=== PATIENT | male | born 1955 | race Caucasian/White ===

== ENCOUNTER → 2016-06-11 | Outpatient (REF) | payer MEDICARE, MEDICAID ==
[2016-06-11 12:09] LABS: ALBUMIN 3.8 GM/DL (3.2-5.2); ALBUMIN/GLOBULIN RATIO 1.06 (1.00-1.93); BILIRUBIN,TOTAL 2.9 MG/DL (0.2-1.0); CREATININE FOR GFR 1.49 MG/DL (0.70-1.30); GLOMERULAR FILTRATION RATE 51.2 (>49); POTASSIUM SERUM 4.8 MEQ/L (3.5-5.1); TOTAL PROTEIN 7.4 GM/DL (6.4-8.2); URIC ACID 5.7 MG/DL (3.5-7.2)
[2016-06-14 00:06] LABS: %CD3+CD4+CD8+ 1.1 % (Not Estab.); %CD3+CD4-CD8- 1.6 % (Not Estab.); ABS CD3+CD4+CD8+ 14 /uL (Not Estab.); ABS CD3+CD4+CD8- 221 /uL (Not Estab.); ABS CD3+CD4-CD8+ 741 /uL (Not Estab.); ABS CD3+CD4-CD8- 21 /uL (Not Estab.); Eosinophils 2 % (.); HGB 15.4 g/dL (12.6-17.7); Monocytes 11 % (.); Neutrophils 62 % (.); WBC 5.3 x10E3/uL (3.4-10.8)
== END ==
LOC: M SFHCPLAZ 08:23
PROVIDERS: ATTEND Internal Medicine Infectious Disease
DX: B20 Human immunodeficiency virus [HIV] disease (principal); R73.09 Other abnormal glucose; M10.079 Idiopathic gout, unspecified ankle and foot; Z79.899 Other long term (current) drug therapy

== ENCOUNTER → 2017-02-17 | Outpatient (REF) | payer MEDICARE, MEDICAID ==
[~2017-02-17] MED LIST: PRAV40TA2 PO; TENO30TAB PO; TIVI1TAB PO; TRIA1CR TOP; ULOR80TA PO; [UNRECOGNIZED DRUG - CODE] PO; [UNRECOGNIZED DRUG - CODE] PO
[2017-02-17 10:16] LABS: ALBUMIN 3.6 GM/DL (3.2-5.2); ALKALINE PHOSPHATASE 84 U/L (45-117); ALT/SGPT 84 U/L (12-78); ANION GAP 5 MEQ/L (8-16); AST/SGOT 43 U/L (15-37); BILIRUBIN,TOTAL 1.9 MG/DL (0.2-1.0); BLOOD UREA NITROGEN 18 MG/DL (7-18); CALCIUM LEVEL 8.5 MG/DL (8.8-10.2); CARBON DIOXIDE LEVEL 30 MEQ/L (21-32); CHLORIDE LEVEL 107 MEQ/L (98-107); CHOLESTEROL LEVEL 171 MG/DL (<200); CREATININE FOR GFR 1.47 MG/DL (0.70-1.30); GLOMERULAR FILTRATION RATE 51.8 (>49); GLUCOSE, FASTING 116 MG/DL (80-110); POTASSIUM SERUM 4.5 MEQ/L (3.5-5.1); SODIUM LEVEL 142 MEQ/L (136-145); TOTAL PROTEIN 7.2 GM/DL (6.4-8.2); TRIGLYCERIDES LEVEL 182 MG/DL (<150); URIC ACID 11.4 MG/DL (3.5-7.2)
[2017-02-21 07:59] LABS: Eosinophils 2 % (.); HCT 46.1 % (37.5-51.0); HGB 15.9 g/dL (12.6-17.7); Monocytes 7 % (.); Neutrophils 65 % (.); WBC 5.1 x10E3/uL (3.4-10.8)
== END ==
LOC: M LABDRAW1 08:38
PROVIDERS: ATTEND Internal Medicine Infectious Disease
DX: B20 Human immunodeficiency virus [HIV] disease (principal); A60.9 Anogenital herpesviral infection, unspecified; Z13.220 Encounter for screening for lipoid disorders; Z11.3 Encounter for screening for infections with a predominantly sexual mode of transmission; Z12.5 Encounter for screening for malignant neoplasm of prostate; M10.079 Idiopathic gout, unspecified ankle and foot; K62.82 Dysplasia of anus; J30.9 Allergic rhinitis, unspecified; Z23 Encounter for immunization; Z79.899 Other long term (current) drug therapy; Z87.891 Personal history of nicotine dependence
CPT/HCPCS: 36415; 80053; 80061; 81001; 84550; 86360; 86780; 87491; 87536; 87591; 90686; G0008; G0103; G0463

== ENCOUNTER 2017-03-04 08:53 | Outpatient (CLI) | payer MEDICARE, MEDICAID ==
[~2017-03-04] VITALS: Ht 180.3 cm; Wt 78.9 kg
[2017-03-04] MEDS ORDERED: NS 1,000 ML IV ONE (09:15)
--- NOTE | 2017-03-04 11:08 | ROOR ---
Patient Name: Karrie Paredes Procedure Date: 03/04/2017 10:46 AM Date of : 1955 Age: 61 Room: [facility] Gender: Male Note Status: Finalized Procedure: Colonoscopy Indications: Change in stool caliber, abnormal anal pap. Providers: Mac CORTEZ MD Referring MD: Randolph AUSTIN MD. Requesting Provider: Medicines: Monitored Anesthesia Care Complications: No immediate complications. Procedure: Pre-Anesthesia Assessment: - The heart rate, respiratory rate, oxygen saturations, blood pressure, adequacy of pulmonary ventilation, and response to care were monitored throughout the procedure. The Colonoscope was introduced through the anus and advanced to the cecum, identified by appendiceal orifice and ileocecal valve. The colonoscopy was performed without difficulty. The patient tolerated the procedure well. The quality of the bowel preparation was good. Findings: The perianal and digital rectal examinations were normal. Pertinent negatives include normal sphincter tone, no palpable rectal lesions and no anal lesion or abnormality was detected. Internal hemorrhoids were found during retroflexion. The hemorrhoids were moderate. There is no endoscopic evidence of mucosal abnormalities or condylomatous changes in the anus and in the rectum. The entire colon appeared normal on direct and retroflexion views. Impression: - Internal hemorrhoids. - The entire examined colon is normal on direct and retroflexion views. - The perianal and digital rectal examinations were normal. Pertinent negatives include normal sphincter tone, no palpable rectal lesions and no anal lesion or abnormality was detected. - There is no endoscopic evidence of mucosal abnormalities or condylomatous changes in the anus and in the rectum. - No specimens collected. Recommendation: - Repeat colonoscopy in 3 years for surveillance. Mac Cortez MD Mac CORTEZ MD 03/04/2017 11:07:50 AM This report has been signed electronically. Number of Addenda: 0 Note Initiated On: 03/04/2017 10:46 AM Estimated Blood Loss: Estimated blood loss: none.
[2017-03-04 11:27] VITALS: BP 103/72
== END 2017-03-04 11:31 | disposition home or self-care (01) ==
LOC: M OPP 08:53
PROVIDERS: ATTEND Internal Medicine Gastroenterology
DX: R19.5 Other fecal abnormalities (principal); R85.619 Unspecified abnormal cytological findings in specimens from anus; Z86.010 Personal history of colon polyps; K64.8 Other hemorrhoids; B20 Human immunodeficiency virus [HIV] disease; Z87.891 Personal history of nicotine dependence; Z88.2 Allergy status to sulfonamides; Z88.8 Allergy status to other drugs, medicaments and biological substances; Z79.899 Other long term (current) drug therapy; Z80.1 Family history of malignant neoplasm of trachea, bronchus and lung; Z80.51 Family history of malignant neoplasm of kidney

== ENCOUNTER → 2017-08-18 | Outpatient (REF) | payer MEDICARE, MEDICAID ==
[2017-08-18 12:33] LABS: APPEARANCE, URINE CLEAR (CLEAR); BACTERIA, URINE AUTO 1+ (NEGATIVE); BILIRUBIN, URINE AUTO NEGATIVE (NEGATIVE); BLOOD, URINE BLOOD NEGATIVE (NEGATIVE); COLOR, URINE YELLOW (YELLOW); GLUCOSE, URINE (UA) AUTO NEGATIVE (NEGATIVE); KETONE, URINE AUTO NEGATIVE (NEGATIVE); LEUKOCYTE ESTERASE, URINE AUTO NEGATIVE (NEGATIVE); MUCUS, URINE SMALL (NEGATIVE); NITRITE, URINE AUTO NEGATIVE (NEGATIVE); PROTEIN, URINE AUTO NEGATIVE (NEGATIVE); RBC, URINE AUTO 1 /HPF (0-3); SPECIFIC GRAVITY URINE AUTO 1.019 (1.002-1.035); SQUAMOUS EPITHELIAL CELL UR AU 0 /HPF (0-6); UROBILINOGEN, URINE AUTO 0.2 mg/dL (0.0-2.0); WBC, URINE AUTO 1 /HPF (0-3)
[2017-08-18 12:35] LABS: ALBUMIN 3.8 GM/DL (3.2-5.2); ALBUMIN/GLOBULIN RATIO 1.03 (1.00-1.93); ALKALINE PHOSPHATASE 103 U/L (45-117); ALT/SGPT 77 U/L (12-78); ANION GAP 8 MEQ/L (8-16); AST/SGOT 47 U/L (7-37); BILIRUBIN,TOTAL 1.3 MG/DL (0.2-1.0); BLOOD UREA NITROGEN 17 MG/DL (7-18); CALCIUM LEVEL 8.8 MG/DL (8.8-10.2); CARBON DIOXIDE LEVEL 27 MEQ/L (21-32); CHLORIDE LEVEL 108 MEQ/L (98-107); CREATININE FOR GFR 1.43 MG/DL (0.70-1.30); GLOMERULAR FILTRATION RATE 53.5 (>49); GLUCOSE, FASTING 95 MG/DL (70-100); POTASSIUM SERUM 4.5 MEQ/L (3.5-5.1); SODIUM LEVEL 143 MEQ/L (136-145); TOTAL PROTEIN 7.5 GM/DL (6.4-8.2); URIC ACID 4.1 MG/DL (3.5-7.2)
[2017-08-18 13:52] LABS: CHLAMYDIA DNA AMPLIFICATION NEGATIVE (NEGATIVE); GC DNA AMPLIFICATION NEGATIVE (NEGATIVE)
[2017-08-20 00:06] LABS: CHLAMYDIA RECTAL APTIMA Negative (Negative); GC RECTAL APTIMA Negative (Negative)
== END ==
LOC: M SFHCPLAZ 08:39
DX: B20 Human immunodeficiency virus [HIV] disease (principal); M10.079 Idiopathic gout, unspecified ankle and foot; Z79.899 Other long term (current) drug therapy
CPT/HCPCS: 84550

== ENCOUNTER → 2018-02-12 | Outpatient (REF) | payer MEDICARE, MEDICAID ==
[2018-02-12 13:27] LABS: ALBUMIN 3.7 GM/DL (3.2-5.2); ALBUMIN/GLOBULIN RATIO 1.06 (1.00-1.93); ALKALINE PHOSPHATASE 86 U/L (45-117); ALT/SGPT 81 U/L (12-78); ANION GAP 6 MEQ/L (8-16); AST/SGOT 47 U/L (7-37); BILIRUBIN,TOTAL 3.7 MG/DL (0.2-1.0); BLOOD UREA NITROGEN 19 MG/DL (7-18); CALCIUM LEVEL 9.1 MG/DL (8.8-10.2); CARBON DIOXIDE LEVEL 28 MEQ/L (21-32); CHLORIDE LEVEL 107 MEQ/L (98-107); CHOLESTEROL LEVEL 181 MG/DL (<200); CHOLESTEROL RISK RATIO 4.209 (<5); CREATININE FOR GFR 1.46 MG/DL (0.70-1.30); GLOMERULAR FILTRATION RATE 52.1 (>49); GLUCOSE, FASTING 116 MG/DL (70-100); HDL CHOLESTEROL 43 MG/DL (>40); LDL CHOLESTEROL 84 MG/DL (<100); NON-HDL-C 138 MG/DL; POTASSIUM SERUM 4.8 MEQ/L (3.5-5.1); PSA SCREENING 2.65 NG/ML (< 4.0); SODIUM LEVEL 141 MEQ/L (136-145); TOTAL PROTEIN 7.2 GM/DL (6.4-8.2); TRIGLYCERIDES LEVEL 272 MG/DL (<150); URIC ACID 5.8 MG/DL (3.5-7.2)
[2018-02-17 00:08] LABS: %CD4 Pos Lymphs 17.3 % (30.8-58.5); ABS Eosinophils 0.1 x10E3/uL (0.0-0.4); ABS Lymphs 1.3 x10E3/uL (0.7-3.1); ABS Monocytes 0.5 x10E3/uL (0.1-0.9); ABS Neutophils 3.2 x10E3/uL (1.4-7.0); Abs CD4 Helper 225 /uL (359-1519); Abs CD8 Suppres 780 /uL (109-897); CD4/CD8 Ratio 0.29 (0.92-3.72); Eosinophils 2 % (Not Estab.); HGB 16.3 g/dL (13.0-17.7); HIV-1 RNA PCR QUANT 2 LC550285 <20 copies/mL (.); Immature Grans 0 % (Not Estab.); Lymphocytes 26 % (Not Estab.); MCH 30.2 pg (26.6-33.0); MCHC 34.7 g/dL (31.5-35.7); MCV 87 fL (79-97); Monocytes 9 % (Not Estab.); Neutrophils 63 % (Not Estab.); Platelets 153 x10E3/uL (150-379); RBC 5.39 x10E6/uL (4.14-5.80); RDW 14.3 % (12.3-15.4); WBC 5.1 x10E3/uL (3.4-10.8)
== END ==
LOC: M SFHCPLAZ 08:12
DX: B20 Human immunodeficiency virus [HIV] disease (principal); E78.00 Pure hypercholesterolemia, unspecified; Z12.5 Encounter for screening for malignant neoplasm of prostate; M10.079 Idiopathic gout, unspecified ankle and foot
CPT/HCPCS: 84550

== ENCOUNTER → 2018-07-13 | Outpatient (REF) | payer MEDICARE, MEDICAID ==
[2018-07-13 10:21] LABS: APPEARANCE, URINE CLEAR (CLEAR); BACTERIA, URINE AUTO NEGATIVE (NEGATIVE); BILIRUBIN, URINE AUTO NEGATIVE (NEGATIVE); BLOOD, URINE BLOOD NEGATIVE (NEGATIVE); COLOR, URINE YELLOW (YELLOW); GLUCOSE, URINE (UA) AUTO NEGATIVE (NEGATIVE); KETONE, URINE AUTO NEGATIVE (NEGATIVE); LEUKOCYTE ESTERASE, URINE AUTO NEGATIVE (NEGATIVE); MUCUS, URINE SMALL (NEGATIVE); NITRITE, URINE AUTO NEGATIVE (NEGATIVE); PROTEIN, URINE AUTO NEGATIVE (NEGATIVE); RBC, URINE AUTO 0 /HPF (0-3); SQUAMOUS EPITHELIAL CELL UR AU 0 /HPF (0-6); UROBILINOGEN, URINE AUTO 0.2 mg/dL (0.0-2.0); WBC, URINE AUTO 0 /HPF (0-3)
[2018-07-13 10:48] LABS: ALBUMIN 3.8 GM/DL (3.2-5.2); BILIRUBIN,TOTAL 2.8 MG/DL (0.2-1.0); CALCIUM LEVEL 8.8 MG/DL (8.8-10.2); CHOLESTEROL RISK RATIO 3.595 (<5); CREATININE FOR GFR 1.34 MG/DL (0.70-1.30); GLOMERULAR FILTRATION RATE 57.5 (>49); POTASSIUM SERUM 4.7 MEQ/L (3.5-5.1); TOTAL PROTEIN 6.9 GM/DL (6.4-8.2); URIC ACID 6.2 MG/DL (3.5-7.2)
[2018-07-13 10:49] LABS: HEMOGLOBIN A1c 5.8 %
[2018-07-13 11:34] LABS: HEPATITIS C VIRUS ABY INDEX 0.1 INDEX (<0.8)
[2018-07-13 11:52] LABS: CHLAMYDIA DNA AMPLIFICATION NEGATIVE (NEGATIVE); GC DNA AMPLIFICATION NEGATIVE (NEGATIVE)
[2018-07-14 14:58] LABS: % CD8 Pos Lymph 60.1 % (12.0-35.5); %CD4 Pos Lymphs 19.1 % (30.8-58.5); ABS Eosinophils 0.1 x10E3/uL (0.0-0.4); ABS Lymphs 1.2 x10E3/uL (0.7-3.1); ABS Monocytes 0.4 x10E3/uL (0.1-0.9); ABS Neutophils 3.4 x10E3/uL (1.4-7.0); Abs CD4 Helper 229 /uL (359-1519); Abs CD8 Suppres 721 /uL (109-897); CD4/CD8 Ratio 0.32 (0.92-3.72); Eosinophils 2 % (Not Estab.); HCT 46.9 % (37.5-51.0); HGB 16.3 g/dL (13.0-17.7); Immature Grans 0 % (Not Estab.); Lymphocytes 24 % (Not Estab.); MCH 30.4 pg (26.6-33.0); MCHC 34.8 g/dL (31.5-35.7); MCV 88 fL (79-97); Monocytes 8 % (Not Estab.); Neutrophils 66 % (Not Estab.); Platelets 167 x10E3/uL (150-379); RBC 5.36 x10E6/uL (4.14-5.80); RDW 14.3 % (12.3-15.4); WBC 5.2 x10E3/uL (3.4-10.8)
[2018-07-16 00:09] LABS: HIV-1 RNA PCR QUANT 2 LC550285 <20 copies/mL (.)
== END ==
LOC: M SFHCPLAZ 07:56
PROVIDERS: ATTEND Internal Medicine Infectious Disease
DX: B20 Human immunodeficiency virus [HIV] disease (principal); E78.00 Pure hypercholesterolemia, unspecified; M10.079 Idiopathic gout, unspecified ankle and foot

== ENCOUNTER → 2019-01-11 | Outpatient (REF) | payer MEDICARE, MEDICAID ==
[~2019-01-11] MED LIST changes: +TRIA0.1C60 TOP; -TRIA1CR TOP
[2019-01-11 14:02] LABS: ALBUMIN 3.6 GM/DL (3.2-5.2); ALT/SGPT 38 U/L (12-78); BILIRUBIN,TOTAL 0.9 MG/DL (0.2-1.0); BLOOD UREA NITROGEN 23 MG/DL (7-18); CALCIUM LEVEL 9.6 MG/DL (8.8-10.2); CARBON DIOXIDE LEVEL 29 MEQ/L (21-32); CHLORIDE LEVEL 108 MEQ/L (98-107); CHOLESTEROL LEVEL 205 MG/DL (<200); CHOLESTEROL RISK RATIO 4.659 (<5); CREATININE FOR GFR 1.28 MG/DL (0.70-1.30); GLOMERULAR FILTRATION RATE > 60.0 (>49); GLUCOSE, FASTING 99 MG/DL (70-100); HDL CHOLESTEROL 44 MG/DL (>40); LDL CHOLESTEROL 109 MG/DL (<100); NON-HDL-C 161 MG/DL; POTASSIUM SERUM 4.5 MEQ/L (3.5-5.1); SODIUM LEVEL 143 MEQ/L (136-145); TOTAL PROTEIN 7.2 GM/DL (6.4-8.2); TRIGLYCERIDES LEVEL 260 MG/DL (<150); URIC ACID 6.5 MG/DL (3.5-7.2)
[2019-01-16 00:08] LABS: % CD8 Pos Lymph 58.8 % (12.0-35.5); %CD4 Pos Lymphs 20.6 % (30.8-58.5); ABS Eosinophils 0.1 x10E3/uL (0.0-0.4); ABS Lymphs 1.1 x10E3/uL (0.7-3.1); ABS Monocytes 0.4 x10E3/uL (0.1-0.9); ABS Neutophils 2.6 x10E3/uL (1.4-7.0); Abs CD4 Helper 227 /uL (359-1519); Abs CD8 Suppres 647 /uL (109-897); CD4/CD8 Ratio 0.35 (0.92-3.72); Eosinophils 3 % (Not Estab.); HCT 44.7 % (37.5-51.0); HGB 14.8 g/dL (13.0-17.7); HIV-1 RNA PCR QUANT 2 LC550285 <20 copies/mL (.); Immature Grans 0 % (Not Estab.); Lymphocytes 26 % (Not Estab.); MCH 29.8 pg (26.6-33.0); MCHC 33.1 g/dL (31.5-35.7); MCV 90 fL (79-97); Monocytes 9 % (Not Estab.); Neutrophils 61 % (Not Estab.); Platelets 155 x10E3/uL (150-450); RBC 4.97 x10E6/uL (4.14-5.80); RDW 14.6 % (12.3-15.4); WBC 4.2 x10E3/uL (3.4-10.8)
== END ==
LOC: M SFHCPLAZ 10:23
PROVIDERS: ATTEND Internal Medicine Infectious Disease
DX: B20 Human immunodeficiency virus [HIV] disease (principal); M10.079 Idiopathic gout, unspecified ankle and foot; E78.00 Pure hypercholesterolemia, unspecified
CPT/HCPCS: 36415; 80053; 80061; 84550; 86360; 87536; G0463

== ENCOUNTER → 2019-06-07 | Outpatient (REF) | payer MEDICARE, MEDICAID ==
[2019-06-07 12:07] LABS: APPEARANCE, URINE CLEAR (CLEAR); BACTERIA, URINE AUTO NEGATIVE (NEGATIVE); BILIRUBIN, URINE AUTO NEGATIVE (NEGATIVE); BLOOD, URINE BLOOD NEGATIVE (NEGATIVE); COLOR, URINE YELLOW (YELLOW); GLUCOSE, URINE (UA) AUTO NEGATIVE (NEGATIVE); KETONE, URINE AUTO NEGATIVE (NEGATIVE); LEUKOCYTE ESTERASE, URINE AUTO NEGATIVE (NEGATIVE); NITRITE, URINE AUTO NEGATIVE (NEGATIVE); PROTEIN, URINE AUTO NEGATIVE (NEGATIVE); RBC, URINE AUTO 2 /HPF (0-3); SQUAMOUS EPITHELIAL CELL UR AU 0 /HPF (0-6); UROBILINOGEN, URINE AUTO 0.2 mg/dL (0.0-2.0); WBC, URINE AUTO 0 /HPF (0-3)
[2019-06-07 12:29] LABS: ALBUMIN 3.6 GM/DL (3.2-5.2); BILIRUBIN,TOTAL 0.5 MG/DL (0.2-1.0); CALCIUM LEVEL 8.9 MG/DL (8.8-10.2); CHOLESTEROL RISK RATIO 6.138 (<5); CREATININE FOR GFR 1.36 MG/DL (0.70-1.30); GLOMERULAR FILTRATION RATE 56.3 (>49); POTASSIUM SERUM 4.4 MEQ/L (3.5-5.1); TOTAL PROTEIN 7.3 GM/DL (6.4-8.2)
[2019-06-11 00:07] LABS: % CD8 Pos Lymph 63.4 % (12.0-35.5); %CD4 Pos Lymphs 16.1 % (30.8-58.5); ABS Eosinophils 0.1 x10E3/uL (0.0-0.4); ABS Lymphs 1.4 x10E3/uL (0.7-3.1); ABS Monocytes 0.5 x10E3/uL (0.1-0.9); ABS Neutophils 2.8 x10E3/uL (1.4-7.0); Abs CD4 Helper 225 /uL (359-1519); Abs CD8 Suppres 888 /uL (109-897); CD4/CD8 Ratio 0.25 (0.92-3.72); Eosinophils 2 % (Not Estab.); HCT 46.3 % (37.5-51.0); HGB 15.7 g/dL (13.0-17.7); HIV-1 RNA PCR QUANT 2 LC550285 <20 copies/mL (.); Immature Grans 0 % (Not Estab.); Lymphocytes 30 % (Not Estab.); MCH 30.2 pg (26.6-33.0); MCHC 33.9 g/dL (31.5-35.7); MCV 89 fL (79-97); Monocytes 10 % (Not Estab.); Neutrophils 57 % (Not Estab.); Platelets 187 x10E3/uL (150-450); RDW 14.5 % (11.6-15.4); WBC 4.8 x10E3/uL (3.4-10.8)
== END ==
LOC: M SFHCPLAZ 09:43
PROVIDERS: ATTEND Internal Medicine Infectious Disease
DX: B20 Human immunodeficiency virus [HIV] disease (principal); E78.00 Pure hypercholesterolemia, unspecified; Z12.5 Encounter for screening for malignant neoplasm of prostate; K62.82 Dysplasia of anus
CPT/HCPCS: 36415; 80053; 80061; 81001; 86360; 86480; 87536; 88108; G0103; G0463

== ENCOUNTER → 2019-06-10 | Outpatient (REF) | payer MEDICARE, MEDICAID | LOC: M LAB REF 09:03 | PROVIDERS: ATTEND Dermatology | DX: L82.1 Other seborrheic keratosis (principal) | CPT/HCPCS: 11102; 88305; G0463 ==

== ENCOUNTER → 2019-12-09 | Outpatient (REF) | payer MEDICARE, MEDICAID ==
[2019-12-09 16:15] LABS: ALT/SGPT 27 U/L (12-78); BILIRUBIN,TOTAL 0.6 MG/DL (0.2-1.0); BLOOD UREA NITROGEN 20 MG/DL (7-18); CARBON DIOXIDE LEVEL 28 MEQ/L (21-32); CHLORIDE LEVEL 111 MEQ/L (98-107); CHOLESTEROL LEVEL 176 MG/DL (<200); CREATININE FOR GFR 1.09 MG/DL (0.70-1.30); GLOMERULAR FILTRATION RATE > 60.0 (>49); GLUCOSE, FASTING 88 MG/DL (70-100); HDL CHOLESTEROL 42 MG/DL (>40); LDL CHOLESTEROL 110 MG/DL (<100); NON-HDL-C 134 MG/DL; POTASSIUM SERUM 4.7 MEQ/L (3.5-5.1); SODIUM LEVEL 144 MEQ/L (136-145); TOTAL PROTEIN 7.2 GM/DL (6.4-8.2); TRIGLYCERIDES LEVEL 119 MG/DL (<150)
[2019-12-14 16:08] LABS: % CD8 Pos Lymph 62.8 % (12.0-35.5); %CD4 Pos Lymphs 17.8 % (30.8-58.5); ABS Eosinophils 0.1 x10E3/uL (0.0-0.4); ABS Lymphs 1.6 x10E3/uL (0.7-3.1); ABS Monocytes 0.4 x10E3/uL (0.1-0.9); Abs CD4 Helper 285 /uL (359-1519); Abs CD8 Suppres 1005 /uL (109-897); CD4/CD8 Ratio 0.28 (0.92-3.72); Eosinophils 2 % (Not Estab.); HCT 46.5 % (37.5-51.0); HGB 15.5 g/dL (13.0-17.7); HIV-1 RNA PCR QUANT 2 LC550285 200 copies/mL (.); HIV-1 RNA PCR QUANT 3 LC550285 2.301 (.); Immature Grans 0 % (Not Estab.); Lymphocytes 31 % (Not Estab.); MCH 30.6 pg (26.6-33.0); MCHC 33.3 g/dL (31.5-35.7); MCV 92 fL (79-97); Monocytes 8 % (Not Estab.); Neutrophils 58 % (Not Estab.); Platelets 179 x10E3/uL (150-450); RBC 5.07 x10E6/uL (4.14-5.80); WBC 5.1 x10E3/uL (3.4-10.8)
== END ==
LOC: M SFHCPLAZ 12:48
PROVIDERS: ATTEND Internal Medicine Infectious Disease
DX: B20 Human immunodeficiency virus [HIV] disease (principal); E78.00 Pure hypercholesterolemia, unspecified; M10.079 Idiopathic gout, unspecified ankle and foot
CPT/HCPCS: 36415; 80053; 80061; 84550; 86360; 87536; G0463

== ENCOUNTER → 2020-05-13 | Outpatient (CLI) | payer MEDICARE, MEDICAID ==
[~2020-05-13] MED LIST changes: +BIKT1TAB PO; +PRED20TA PO; +PREZ1TAB PO; +ROSU10TA6 PO
== END ==
LOC: M LABSMTC 08:48
PROVIDERS: ATTEND Internal Medicine Gastroenterology
DX: Z01.818 Encounter for other preprocedural examination (principal); Z20.828 Contact with and (suspected) exposure to other viral communicable diseases

== ENCOUNTER 2020-05-18 08:14 | Day surgery (SDC) | payer MEDICARE, MEDICAID ==
[~2020-05-18] VITALS: Ht 180.3 cm; Wt 79.6 kg
[~2020-05-18 08:14] MED LIST changes: +LIDOCAINE 2% 100MG/5ML SDV (FOR ANES.) As Ordered ONE; +NS 1,000 ML IV ONE; +propofoL 200 MG/20 ML VIAL As Ordered ONE
--- NOTE | 2020-05-18 09:48 | ROOR ---
Patient Name: Karrie Paredes Procedure Date: 05/18/2020 9:27 AM Date of : 1955 Age: 64 Room: [facility] Gender: Male Note Status: Finalized Procedure: Colonoscopy Indications: High risk colon cancer surveillance: Personal history of colonic polyps, Abnormal Anal Pap Providers: Mac CORTEZ MD Referring MD: Randolph NO MD. Requesting Provider: Medicines: Monitored Anesthesia Care Complications: No immediate complications. Procedure: Pre-Anesthesia Assessment: - The heart rate, respiratory rate, oxygen saturations, blood pressure, adequacy of pulmonary ventilation, and response to care were monitored throughout the procedure. The Colonoscope was introduced through the anus and advanced to the terminal ileum, with identification of the appendiceal orifice and IC valve. The colonoscopy was performed without difficulty. The patient tolerated the procedure well. The quality of the bowel preparation was good. Findings: The perianal and digital rectal examinations were normal. Mild sigmoid diverticulosis and moderate internal hemorrhoids. There is no endoscopic evidence of abnormality in the anus and in the rectum. Impression: -Mild sigmoid diverticulosis and moderate internal hemorrhoids. - The colonoscopy was otherwise normal. -There is no endoscopic evidence of abnormality in the anus and in the rectum - No specimens collected. Recommendation: - Return to referring physician as previously scheduled. - Repeat colonoscopy to be discussed with your ID specialist/Dr No for surveillance. Procedure Code(s): --- Professional --- 31245, Colonoscopy, flexible; diagnostic, including collection of specimen(s) by brushing or washing, when performed (separate procedure) Diagnosis Code(s): --- Professional --- Z86.010, Personal history of colonic polyps CPT copyright 2019 [employer]. All rights reserved. 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 Mac Cortez MD Mac CORTEZ MD 05/18/2020 9:48:32 AM Electronically signed by Mac CORTEZ MD Number of Addenda: 0 Note Initiated On: 05/18/2020 9:27 AM Estimated Blood Loss: Estimated blood loss: none.
[2020-05-18 10:10] VITALS: BP 123/79
== END 2020-05-18 10:15 | disposition home or self-care (01) ==
LOC: M OPP 08:14
PROVIDERS: ATTEND Internal Medicine Gastroenterology
DX: Z12.11 Encounter for screening for malignant neoplasm of colon (principal); Z86.010 Personal history of colon polyps; R85.619 Unspecified abnormal cytological findings in specimens from anus; K57.90 Diverticulosis of intestine, part unspecified, without perforation or abscess without bleeding; K64.8 Other hemorrhoids

== ENCOUNTER → 2020-06-07 | Outpatient (REF) | payer MEDICARE, MEDICAID ==
[~2020-06-07] MED LIST changes: -LIDOCAINE 2% 100MG/5ML SDV (FOR ANES.) As Ordered ONE; -NS 1,000 ML IV ONE; -propofoL 200 MG/20 ML VIAL As Ordered ONE
[2020-06-07 11:08] LABS: APPEARANCE, URINE CLEAR (CLEAR); BACTERIA, URINE AUTO NEGATIVE (NEGATIVE); BILIRUBIN, URINE AUTO NEGATIVE (NEGATIVE); BLOOD, URINE BLOOD NEGATIVE (NEGATIVE); COLOR, URINE YELLOW (YELLOW); GLUCOSE, URINE (UA) AUTO NEGATIVE (NEGATIVE); KETONE, URINE AUTO NEGATIVE (NEGATIVE); LEUKOCYTE ESTERASE, URINE AUTO NEGATIVE (NEGATIVE); MUCUS, URINE SMALL (NEGATIVE); NITRITE, URINE AUTO NEGATIVE (NEGATIVE); PROTEIN, URINE AUTO NEGATIVE (NEGATIVE); RBC, URINE AUTO 1 /HPF (0-3); SPECIFIC GRAVITY URINE AUTO 1.021 (1.002-1.035); SQUAMOUS EPITHELIAL CELL UR AU 0 /HPF (0-6); UROBILINOGEN, URINE AUTO 0.2 mg/dL (0.0-2.0); WBC, URINE AUTO 1 /HPF (0-3)
[2020-06-07 11:32] LABS: ALBUMIN 3.8 GM/DL (3.2-5.2); BILIRUBIN,TOTAL 0.5 MG/DL (0.2-1.0); CALCIUM LEVEL 8.8 MG/DL (8.8-10.2); CREATININE FOR GFR 1.36 MG/DL (0.70-1.30); GLOMERULAR FILTRATION RATE 56.2 (>49); POTASSIUM SERUM 4.5 MEQ/L (3.5-5.1); TOTAL PROTEIN 6.7 GM/DL (6.4-8.2)
[2020-06-09 03:06] LABS: % CD8 Pos Lymph 61.3 % (12.0-35.5); %CD4 Pos Lymphs 18.9 % (30.8-58.5); ABS Eosinophils 0.1 x10E3/uL (0.0-0.4); ABS Lymphs 1.1 x10E3/uL (0.7-3.1); ABS Monocytes 0.4 x10E3/uL (0.1-0.9); ABS Neutophils 2.5 x10E3/uL (1.4-7.0); Abs CD4 Helper 208 /uL (359-1519); Abs CD8 Suppres 674 /uL (109-897); CD4/CD8 Ratio 0.31 (0.92-3.72); Eosinophils 2 % (Not Estab.); HCT 47.2 % (37.5-51.0); HGB 15.6 g/dL (13.0-17.7); HIV-1 RNA PCR QUANT 2 LC550285 <20 copies/mL (.); Immature Grans 0 % (Not Estab.); Lymphocytes 26 % (Not Estab.); MCHC 33.1 g/dL (31.5-35.7); MCV 91 fL (79-97); Monocytes 10 % (Not Estab.); Neutrophils 61 % (Not Estab.); Platelets 170 x10E3/uL (150-450); RDW 12.8 % (11.6-15.4); WBC 4.1 x10E3/uL (3.4-10.8)
== END ==
LOC: M PLALAB 08:36
PROVIDERS: ATTEND Internal Medicine Infectious Disease
DX: B20 Human immunodeficiency virus [HIV] disease (principal); Z12.5 Encounter for screening for malignant neoplasm of prostate
CPT/HCPCS: 36415; 80053; 81001; 86360; 87536; G0103

== ENCOUNTER → 2020-11-02 | Outpatient (CLI) | payer MEDICARE, MEDICAID | LOC: M LAB 07:53 | PROVIDERS: ATTEND Urology | DX: Z12.5 Encounter for screening for malignant neoplasm of prostate (principal); N52.9 Male erectile dysfunction, unspecified | CPT/HCPCS: 36415; 84403; G0103 ==

== ENCOUNTER → 2020-11-22 | Outpatient (CLI) | payer MEDICARE ==
--- NOTE | 2020-11-22 15:38 | REPPI ---
INDICATION: ELEVATED PSA. COMPARISON: None. TECHNIQUE: Transrectal prostate sonography. FINDINGS: Trans rectal prostate sonography demonstrates unremarkable seminal vesicles. Prostate gland is heterogeneous, with calcifications and cystic changes noted. Glandular dimensions are measured at 3.1 x 2.1 x 4.5 cm with a calculated glandular volume of 15.9 ml. Transrectal sonographic guidance is provided to Dr. Salazar who performed trans rectal ultrasound guided needle biopsy procedure. IMPRESSION: Transrectal prostate sonographic findings as above. <Electronically signed by Isauro Martinez > 11/22/20 [id number]
== END ==
LOC: M SMT PRO 13:31
PROVIDERS: ATTEND Urology
DX: C61 Malignant neoplasm of prostate (principal)
CPT/HCPCS: 55700; 76942; G0416

== ENCOUNTER → 2020-12-05 | Outpatient (CLI) | payer MEDICARE, MEDICAID ==
[2020-12-05 14:09] LABS: BLOOD UREA NITROGEN 20 MG/DL (7-18); CALCIUM LEVEL 9.4 MG/DL (8.8-10.2); CARBON DIOXIDE LEVEL 28 MEQ/L (21-32); CHLORIDE LEVEL 106 MEQ/L (98-107); CREATININE FOR GFR 1.25 MG/DL (0.70-1.30); GLOMERULAR FILTRATION RATE > 60.0 (>49); GLUCOSE, FASTING 93 MG/DL (70-100); POTASSIUM SERUM 4.3 MEQ/L (3.5-5.1); SODIUM LEVEL 140 MEQ/L (136-145)
== END ==
LOC: M PLALAB 10:26
PROVIDERS: ATTEND Urology
DX: C61 Malignant neoplasm of prostate (principal)

== ENCOUNTER → 2020-12-05 | Outpatient (CLI) | payer MEDICARE, MEDICAID ==
[2020-12-05 14:22] LABS: ALBUMIN 3.8 GM/DL (3.2-5.2); BILIRUBIN,TOTAL 0.8 MG/DL (0.2-1.0); CALCIUM LEVEL 8.9 MG/DL (8.8-10.2); CHOLESTEROL RISK RATIO 3.88 (<5); CREATININE FOR GFR 1.28 MG/DL (0.70-1.30); POTASSIUM SERUM 4.3 MEQ/L (3.5-5.1); TOTAL PROTEIN 6.8 GM/DL (6.4-8.2); URIC ACID 5.3 MG/DL (3.5-7.2)
[2020-12-07 00:07] LABS: % CD8 Pos Lymph 58.2 % (12.0-35.5); %CD4 Pos Lymphs 20.2 % (30.8-58.5); ABS Eosinophils 0.1 x10E3/uL (0.0-0.4); ABS Monocytes 0.5 x10E3/uL (0.1-0.9); ABS Neutophils 3.4 x10E3/uL (1.4-7.0); Abs CD4 Helper 202 /uL (359-1519); Abs CD8 Suppres 582 /uL (109-897); CD4/CD8 Ratio 0.35 (0.92-3.72); Eosinophils 2 % (Not Estab.); HCT 43.2 % (37.5-51.0); HGB 14.6 g/dL (13.0-17.7); HIV-1 RNA PCR QUANT 2 LC550285 20 copies/mL (.); HIV-1 RNA PCR QUANT 3 LC550285 1.301 (.); Immature Grans 0 % (Not Estab.); Lymphocytes 20 % (Not Estab.); MCH 30.2 pg (26.6-33.0); MCHC 33.8 g/dL (31.5-35.7); MCV 89 fL (79-97); Monocytes 10 % (Not Estab.); Neutrophils 67 % (Not Estab.); Platelets 175 x10E3/uL (150-450); RBC 4.83 x10E6/uL (4.14-5.80)
== END ==
LOC: M PLALAB 10:29
PROVIDERS: ATTEND Internal Medicine Infectious Disease
DX: M10.079 Idiopathic gout, unspecified ankle and foot (principal); R94.5 Abnormal results of liver function studies; B20 Human immunodeficiency virus [HIV] disease; E78.00 Pure hypercholesterolemia, unspecified
CPT/HCPCS: 36415; 80053; 80061; 84550; 86360; 86803; 87536; G0463

== ENCOUNTER → 2020-12-21 | Outpatient (CLI) | payer MEDICARE, MEDICAID ==
[~2020-12-21] MED LIST changes: +PROHANCE 279.3MG/ML 15ML VIAL As Ordered ONE
--- NOTE | 2020-12-22 09:08 | REP ---
INDICATION: PROSTATE CA. COMPARISON: None. TECHNIQUE: Using a phased array surface coil, small gkrwe-gj-xeob imaging was acquired using T2 weighted scans in the axial, coronal, and sagittal imaging planes. Small jagny-ap-gpws diffusion-weighted sequences are acquired. Small bfood-qv-lxqu axial T1 weighted scans are acquired dynamically before and after the intravenous administration of 13 mL of ProHance. Imaging is reviewed using the [employer] computer-aided detection system. FINDINGS: The osseous structures of pelvis demonstrate no bone lesion. There is marrow edema in the anterior left acetabulum. This is nonspecific and could be secondary to arthritic changes at the left hip joint or posttraumatic bone bruise. No adenopathy is seen in the pelvis. There is sigmoid diverticulosis. Small bilateral inguinal hernias containing noninflamed fat. The prostate measures 4.2 x 2.9 x 2.6 cm, total volume 17.61 cc. There is an area of relative hypointensity on T2 and ADC images in the right mid and basilar transitional zone with areas of type 3 washout enhancement. This could represent the area of the positive biopsy from 11/22/2020. This area measures 1.7 x 0.7 x 1.4 cm, total volume 1.64 cc. Heterogeneous T2 hypointensity is seen throughout the remaining transitional zone and bilateral peripheral zone of the prostate, with no focal mass or area of washout enhancement. There is no extraprostatic extension of a mass. The seminal vesicles are symmetrical and unremarkable, filled with fluid. IMPRESSION: Marrow edema in the anterior left acetabulum is nonspecific and may be secondary to arthritic change or posttraumatic bone bruise. Ill-defined hypointensity on T2 and ADC images with areas of washout enhancement in the right mid and basilar transitional zone could represent the area of the positive biopsy from 11/22/2020. No other focal lesion in the prostate no extraprostatic extension. No adenopathy. <Electronically signed by Jake Lopez > 12/22/20 [id number]
== END ==
LOC: M RAD 15:29
PROVIDERS: ATTEND Urology
DX: C61 Malignant neoplasm of prostate (principal)
CPT/HCPCS: 72197; A9576

== ENCOUNTER → 2021-02-20 | Outpatient (CLI) | payer MEDICARE, MEDICAID ==
[~2021-02-20] MED LIST changes: -PROHANCE 279.3MG/ML 15ML VIAL As Ordered ONE
[2021-02-21 23:07] LABS: PSA TOTAL 2.5 ng/mL (0.0-4.0)
== END ==
LOC: M LAB 11:11
PROVIDERS: ATTEND Urology
DX: C61 Malignant neoplasm of prostate (principal); R97.20 Elevated prostate specific antigen [PSA]

== ENCOUNTER → 2021-06-04 | Outpatient (CLI) | payer MEDICARE, MEDICAID ==
[2021-06-05 23:07] LABS: PSA TOTAL 2.7 ng/mL (0.0-4.0)
== END ==
LOC: M PLALAB 10:31
PROVIDERS: ATTEND Urology
DX: C61 Malignant neoplasm of prostate (principal)

== ENCOUNTER → 2021-06-04 | Outpatient (CLI) | payer MEDICARE, MEDICAID ==
[2021-06-04 14:05] LABS: BILIRUBIN,TOTAL 0.6 MG/DL (0.2-1.0); CALCIUM LEVEL 9.5 MG/DL (8.8-10.2); CHOLESTEROL RISK RATIO 4.12 (<5); CREATININE FOR GFR 1.34 MG/DL (0.70-1.30); POTASSIUM SERUM 4.8 MEQ/L (3.5-5.1); TOTAL PROTEIN 7.5 GM/DL (6.4-8.2); URIC ACID 6.9 MG/DL (3.5-7.2)
[2021-06-04 14:51] LABS: HEPATITIS C VIRUS ABY INDEX 0.1 INDEX (<0.8)
[2021-06-06 03:07] LABS: % CD8 Pos Lymph 60.4 % (12.0-35.5); ABS Basophils 0.1 x10E3/uL (0.0-0.2); ABS Eosinophils 0.1 x10E3/uL (0.0-0.4); ABS Lymphs 1.2 x10E3/uL (0.7-3.1); ABS Monocytes 0.4 x10E3/uL (0.1-0.9); ABS Neutophils 2.8 x10E3/uL (1.4-7.0); Abs CD4 Helper 216 /uL (359-1519); Abs CD8 Suppres 725 /uL (109-897); Eosinophils 2 % (Not Estab.); HCT 47.1 % (37.5-51.0); HGB 16.2 g/dL (13.0-17.7); HIV-1 RNA PCR QUANT 2 LC550285 <20 copies/mL (.); Immature Grans 0 % (Not Estab.); Lymphocytes 26 % (Not Estab.); MCH 29.6 pg (26.6-33.0); MCHC 34.4 g/dL (31.5-35.7); MCV 86 fL (79-97); Monocytes 9 % (Not Estab.); Neutrophils 62 % (Not Estab.); Platelets 171 x10E3/uL (150-450); RBC 5.48 x10E6/uL (4.14-5.80); RDW 12.9 % (11.6-15.4); WBC 4.5 x10E3/uL (3.4-10.8)
== END ==
LOC: M PLALAB 10:33
PROVIDERS: ATTEND Internal Medicine Infectious Disease
DX: M10.079 Idiopathic gout, unspecified ankle and foot (principal); R94.5 Abnormal results of liver function studies; B20 Human immunodeficiency virus [HIV] disease; E78.00 Pure hypercholesterolemia, unspecified

== ENCOUNTER → 2021-09-11 | Outpatient (REF) | payer MEDICARE, MEDICAID | LOC: M SFHCDERM 13:56 | PROVIDERS: ATTEND Nurse Practitioner Family | DX: L82.1 Other seborrheic keratosis (principal) ==

== ENCOUNTER → 2021-12-04 | Outpatient (CLI) | payer MEDICARE, MEDICAID ==
[2021-12-04 14:04] LABS: HEMOGLOBIN A1c 5.2 %
[2021-12-04 14:11] LABS: ALBUMIN 3.8 GM/DL (3.2-5.2); ALT/SGPT 42 U/L (12-78); BILIRUBIN,TOTAL 0.6 MG/DL (0.2-1.0); BLOOD UREA NITROGEN 23 MG/DL (7-18); CALCIUM LEVEL 9.3 MG/DL (8.8-10.2); CARBON DIOXIDE LEVEL 28 MEQ/L (21-32); CHLORIDE LEVEL 111 MEQ/L (98-107); CREATININE FOR GFR 1.26 MG/DL (0.70-1.30); GLOMERULAR FILTRATION RATE > 60.0 (>49); GLUCOSE, FASTING 97 MG/DL (70-100); SODIUM LEVEL 142 MEQ/L (136-145)
[2021-12-06 06:08] LABS: % CD8 Pos Lymph 57.6 % (12.0-35.5); %CD4 Pos Lymphs 19.6 % (30.8-58.5); ABS Eosinophils 0.1 x10E3/uL (0.0-0.4); ABS Lymphs 1.2 x10E3/uL (0.7-3.1); ABS Monocytes 0.5 x10E3/uL (0.1-0.9); ABS Neutophils 2.3 x10E3/uL (1.4-7.0); Abs CD4 Helper 235 /uL (359-1519); Abs CD8 Suppres 691 /uL (109-897); CD4/CD8 Ratio 0.34 (0.92-3.72); Eosinophils 3 % (Not Estab.); HCT 44.9 % (37.5-51.0); HGB 15.3 g/dL (13.0-17.7); HIV-1 RNA PCR QUANT 2 LC550285 <20 copies/mL (.); Immature Grans 0 % (Not Estab.); Lymphocytes 28 % (Not Estab.); MCH 30.2 pg (26.6-33.0); MCHC 34.1 g/dL (31.5-35.7); MCV 89 fL (79-97); Monocytes 12 % (Not Estab.); Neutrophils 56 % (Not Estab.); Platelets 166 x10E3/uL (150-450); RBC 5.07 x10E6/uL (4.14-5.80); WBC 4.2 x10E3/uL (3.4-10.8)
== END ==
LOC: M PLALAB 10:20
PROVIDERS: ATTEND Internal Medicine Infectious Disease
DX: B20 Human immunodeficiency virus [HIV] disease (principal); K62.82 Dysplasia of anus; M25.561 Pain in right knee; Z13.1 Encounter for screening for diabetes mellitus; Z79.899 Other long term (current) drug therapy; Z23 Encounter for immunization
CPT/HCPCS: 36415; 80053; 83036; 85652; 86360; 86618; 87536; 88108; 90677; G0009; G0463

== ENCOUNTER → 2022-11-25 | Outpatient (CLI) | payer MEDICARE, MEDICAID | LOC: M PLALAB 10:47 | PROVIDERS: ATTEND Urology | DX: C61 Malignant neoplasm of prostate (principal) ==

== ENCOUNTER → 2022-11-25 | Outpatient (CLI) | payer MEDICARE, MEDICAID ==
[2022-11-25 13:17] LABS: APPEARANCE, URINE CLEAR (CLEAR); BACTERIA, URINE AUTO NEGATIVE (NEGATIVE); BILIRUBIN, URINE AUTO NEGATIVE (NEGATIVE); BLOOD, URINE BLOOD NEGATIVE (NEGATIVE); COLOR, URINE YELLOW (YELLOW); GLUCOSE, URINE (UA) AUTO NEGATIVE (NEGATIVE); KETONE, URINE AUTO NEGATIVE (NEGATIVE); LEUKOCYTE ESTERASE, URINE AUTO NEGATIVE (NEGATIVE); MUCUS, URINE SMALL (NEGATIVE); NITRITE, URINE AUTO NEGATIVE (NEGATIVE); PROTEIN, URINE AUTO NEGATIVE (NEGATIVE); RBC, URINE AUTO 0 /HPF (0-3); SPECIFIC GRAVITY URINE AUTO 1.025 (1.002-1.035); SQUAMOUS EPITHELIAL CELL UR AU 0 /HPF (0-6); UROBILINOGEN, URINE AUTO 0.2 mg/dL (0.0-2.0); WBC, URINE AUTO 1 /HPF (0-3)
[2022-11-25 13:48] LABS: URIC ACID 6.4 MG/DL (3.7-9.2)
[2022-11-25 13:51] LABS: ALBUMIN 4.1 G/DL (3.2-5.2); ALKALINE PHOSPHATASE 65 U/L (46-116); ALT/SGPT 22 U/L (7.0-40); AST/SGOT < 8 U/L (<34); BILIRUBIN,TOTAL 0.6 MG/DL (0.3-1.2); BLOOD UREA NITROGEN 25 MG/DL (9-23); CALCIUM LEVEL 9.9 MG/DL (8.3-10.6); CARBON DIOXIDE LEVEL 27 MMOL/L (20-31); CHLORIDE LEVEL 106 MMOL/L (98-107); GLOMERULAR FILTRATION RATE 58.6 (>49); GLUCOSE, FASTING 107 MG/DL (74-106); POTASSIUM SERUM 5.1 MMOL/L (3.5-5.1); SODIUM LEVEL 140 MMOL/L (136-145); TOTAL PROTEIN 7.1 G/DL (5.7-8.2)
[2022-11-26 14:10] LABS: % CD8 Pos Lymph 68.1 % (12.0-35.5); %CD4 Pos Lymphs 14.9 % (30.8-58.5); ABS Lymphs 1.3 x10E3/uL (0.7-3.1); ABS Monocytes 0.7 x10E3/uL (0.1-0.9); ABS Neutophils 7.9 x10E3/uL (1.4-7.0); Abs CD4 Helper 194 /uL (359-1519); Abs CD8 Suppres 885 /uL (109-897); CD4/CD8 Ratio 0.22 (0.92-3.72); Eosinophils 0 % (Not Estab.); HCT 45.6 % (37.5-51.0); Immature Grans 0 % (Not Estab.); Lymphocytes 13 % (Not Estab.); MCH 30.8 pg (26.6-33.0); MCHC 35.1 g/dL (31.5-35.7); MCV 88 fL (79-97); Monocytes 8 % (Not Estab.); Neutrophils 79 % (Not Estab.); Platelets 208 x10E3/uL (150-450); RBC 5.19 x10E6/uL (4.14-5.80); RDW 12.9 % (11.6-15.4); WBC 9.9 x10E3/uL (3.4-10.8)
[2022-11-26 17:07] LABS: HIV-1 RNA PCR QUANT 2 LC550285 <20 copies/mL (.)
== END ==
LOC: M PLALAB 10:50
PROVIDERS: ATTEND Internal Medicine Infectious Disease
DX: B20 Human immunodeficiency virus [HIV] disease (principal); C61 Malignant neoplasm of prostate; M10.079 Idiopathic gout, unspecified ankle and foot; R85.610 Atypical squamous cells of undetermined significance on cytologic smear of anus (ASC-US); Z77.9 Other contact with and (suspected) exposures hazardous to health

== ENCOUNTER → 2022-12-17 | Outpatient (REF) | payer MEDICARE, MEDICAID | LOC: M LABSMT 15:27 | PROVIDERS: ATTEND Urology | DX: C61 Malignant neoplasm of prostate (principal) ==

== ENCOUNTER → 2023-05-19 | Outpatient (CLI) | payer MEDICARE, MEDICAID ==
[2023-05-19 11:08] LABS: ALBUMIN 3.7 G/DL (3.2-5.2); ALKALINE PHOSPHATASE 59 U/L (46-116); ALT/SGPT 27 U/L (7.0-40); AST/SGOT 23 U/L (<34); BILIRUBIN,TOTAL 0.6 MG/DL (0.3-1.2); BLOOD UREA NITROGEN 19 MG/DL (9-23); CALCIUM LEVEL 9.2 MG/DL (8.3-10.6); CARBON DIOXIDE LEVEL 28 MMOL/L (20-31); CHLORIDE LEVEL 108 MMOL/L (98-107); CHOLESTEROL LEVEL 177 MG/DL (<200); CHOLESTEROL RISK RATIO 3.96 (<5); CREATININE FOR GFR 1.21 MG/DL (0.70-1.30); GLOMERULAR FILTRATION RATE > 60.0 (>49); GLUCOSE, FASTING 121 MG/DL (74-106); HDL CHOLESTEROL 44.6 MG/DL (>40); LDL CHOLESTEROL 100.6 MG/DL (<100); NON-HDL-C 132.4 MG/DL; POTASSIUM SERUM 4.4 MMOL/L (3.5-5.1); SODIUM LEVEL 140 MMOL/L (136-145); TOTAL PROTEIN 6.4 G/DL (5.7-8.2); TRIGLYCERIDES LEVEL 159 MG/DL (<150)
[2023-05-19 11:25] LABS: URIC ACID 7.1 MG/DL (3.7-9.2)
[2023-05-20 17:07] LABS: % CD8 Pos Lymph 60.4 % (12.0-35.5); %CD4 Pos Lymphs 17.4 % (30.8-58.5); ABS Basophils 0.1 x10E3/uL (0.0-0.2); ABS Eosinophils 0.1 x10E3/uL (0.0-0.4); ABS Lymphs 1.3 x10E3/uL (0.7-3.1); ABS Monocytes 0.5 x10E3/uL (0.1-0.9); ABS Neutophils 3.5 x10E3/uL (1.4-7.0); Abs CD4 Helper 226 /uL (359-1519); Abs CD8 Suppres 785 /uL (109-897); CD4/CD8 Ratio 0.29 (0.92-3.72); Eosinophils 2 % (Not Estab.); HCT 43.9 % (37.5-51.0); HIV-1 RNA PCR QUANT 2 LC550285 <20 copies/mL (.); Imm ABS Grans 0.1 x10E3/uL (0.0-0.1); Immature Grans 1 % (Not Estab.); Lymphocytes 24 % (Not Estab.); MCH 30.4 pg (26.6-33.0); MCHC 34.2 g/dL (31.5-35.7); MCV 89 fL (79-97); Monocytes 9 % (Not Estab.); Neutrophils 63 % (Not Estab.); Platelets 158 x10E3/uL (150-450); RBC 4.94 x10E6/uL (4.14-5.80); RDW 13.2 % (11.6-15.4); WBC 5.5 x10E3/uL (3.4-10.8)
== END ==
LOC: M PLALAB 07:48
PROVIDERS: ATTEND Internal Medicine Infectious Disease
DX: B20 Human immunodeficiency virus [HIV] disease (principal); M10.079 Idiopathic gout, unspecified ankle and foot; E78.00 Pure hypercholesterolemia, unspecified

== ENCOUNTER → 2023-06-12 | Outpatient (CLI) | payer MEDICARE, MEDICAID | LOC: M PLALAB 11:11 | PROVIDERS: ATTEND Urology | DX: C61 Malignant neoplasm of prostate (principal) ==

== ENCOUNTER → 2023-09-09 | Outpatient (REF) | payer MEDICARE, MEDICAID ==
[2023-09-09 14:21] LABS: GC DNA AMPLIFICATION NEGATIVE (NEGATIVE)
== END ==
LOC: M LAB REF 12:12
PROVIDERS: ATTEND Internal Medicine Infectious Disease
DX: J02.9 Acute pharyngitis, unspecified (principal); Z11.3 Encounter for screening for infections with a predominantly sexual mode of transmission

== ENCOUNTER 2023-10-06 08:16 | Day surgery (SDC) | payer MEDICARE, MEDICAID ==
[~2023-10-06] VITALS: Ht 175.3 cm; Wt 78.0 kg
[2023-10-06] MEDS: NS 1,000 ML IV ONE (06:00)
[~2023-10-06 08:16] MED LIST changes: -ROSU10TA6 PO; +ROSU10TA61 PO
[2023-10-06 10:39] VITALS: TEMP 97.1
[2023-10-06 10:55] VITALS: BP 139/85; O2SAT 99
[2023-10-06] MEDS ORDERED: propofoL 500 MG/50 ML VIAL As Ordered ONE (10:57)
== END 2023-10-06 11:10 | disposition home or self-care (01) ==
LOC: M OPP 08:16
PROVIDERS: ATTEND Internal Medicine Gastroenterology
DX: Z12.11 Encounter for screening for malignant neoplasm of colon (principal); D12.4 Benign neoplasm of descending colon; K57.30 Diverticulosis of large intestine without perforation or abscess without bleeding; K64.8 Other hemorrhoids; Z86.010 Personal history of colon polyps; Z85.828 Personal history of other malignant neoplasm of skin; E78.00 Pure hypercholesterolemia, unspecified; Z21 Asymptomatic human immunodeficiency virus [HIV] infection status; Z79.899 Other long term (current) drug therapy; Z88.2 Allergy status to sulfonamides; Z88.8 Allergy status to other drugs, medicaments and biological substances; M10.9 Gout, unspecified

== ENCOUNTER → 2023-11-17 | Outpatient (CLI) | payer MEDICARE, MEDICAID ==
[2023-11-17 09:22] LABS: PROSTATIC SPECIFIC AG MONITOR 3.71 NG/ML (< 4.00)
[2023-11-17 09:23] LABS: ALBUMIN 3.7 G/DL (3.2-5.2); ALKALINE PHOSPHATASE 74 U/L (46-116); ALT/SGPT 27 U/L (7.0-40); AST/SGOT 17 U/L (<34); BILIRUBIN,TOTAL 0.6 MG/DL (0.3-1.2); BLOOD UREA NITROGEN 21 MG/DL (9-23); CALCIUM LEVEL 9.1 MG/DL (8.3-10.6); CARBON DIOXIDE LEVEL 28 MMOL/L (20-31); CHLORIDE LEVEL 108 MMOL/L (98-107); CREATININE FOR GFR 1.02 MG/DL (0.70-1.30); GLOMERULAR FILTRATION RATE > 60.0 (>49); GLUCOSE, FASTING 96 MG/DL (74-106); POTASSIUM SERUM 4.7 MMOL/L (3.5-5.1); SODIUM LEVEL 140 MMOL/L (136-145); TOTAL PROTEIN 6.6 G/DL (5.7-8.2)
[2023-11-18 16:10] LABS: % CD4+ LYMPHS 16.8 % (30.8-58.5); ABSOLUTE CD4 HELPER 218 /uL (359-1519); BASOPHILS 1 % (Not Estab.); EOSINOPHILS 2 % (Not Estab.); EOSINOPHILS ABSOLUTE 0.1 x10E3/uL (0.0-0.4); HCT 45.7 % (37.5-51.0); HGB 15.7 g/dL (13.0-17.7); LYMPHOCYTES 25 % (Not Estab.); LYMPHOCYTES ABSOLUTE 1.3 x10E3/uL (0.7-3.1); MCHC 34.4 g/dL (31.5-35.7); MCV 90 fL (79-97); MONOCYTES 9 % (Not Estab.); MONOCYTES ABSOLUTE 0.5 x10E3/uL (0.1-0.9); NEUTROPHILS 63 % (Not Estab.); NEUTROPHILS ABSOLUTE 3.4 x10E3/uL (1.4-7.0); PLT 156 x10E3/uL (150-450); RBC 5.06 x10E6/uL (4.14-5.80); RDW 13.4 % (11.6-15.4); WBC 5.3 x10E3/uL (3.4-10.8)
== END ==
LOC: M PLALAB 07:36 → M LAB 07:36
PROVIDERS: ATTEND Internal Medicine Infectious Disease
DX: B20 Human immunodeficiency virus [HIV] disease (principal); R97.20 Elevated prostate specific antigen [PSA]

== ENCOUNTER → 2024-01-15 | Outpatient (CLI) | payer MEDICARE, MEDICAID ==
[2024-01-15 09:11] LABS: BASO % 0.8 % (0.0-1.0); EOS # 0.1 10^3/uL (0.0-0.5); EOS % 1.7 % (0.0-3.0); HEMATOCRIT 45.8 % (42.0-52.0); HEMOGLOBIN 15.7 g/dl (13.5-17.5); LYMPH # 1.3 10^3/uL (1.5-5.0); LYMPH % 25.3 % (24.0-44.0); MEAN CORPUSCULAR HEMOGLOBIN 30.8 pg (27.0-33.0); MEAN CORPUSCULAR HGB CONC 34.3 g/dl (32.0-36.5); MEAN CORPUSCULAR VOLUME 89.8 fl (80.0-96.0); MONO # 0.5 10^3/uL (0.0-0.8); MONO % 10.1 % (2.0-8.0); NEUTROPHILS # 3.2 10^3/uL (1.5-8.5); NEUTROPHILS % 61.5 % (36.0-66.0); PLATELET COUNT, AUTOMATED 152 10^3/uL (150-450); WHITE BLOOD COUNT 5.2 10^3/uL (4.0-10.0)
[2024-01-15 09:37] LABS: ALBUMIN 3.7 G/DL (3.2-5.2); BILIRUBIN,TOTAL 0.7 MG/DL (0.3-1.2); CALCIUM LEVEL 9.1 MG/DL (8.3-10.6); CREATININE FOR GFR 1.35 MG/DL (0.70-1.30); POTASSIUM SERUM 4.6 MMOL/L (3.5-5.1); TOTAL PROTEIN 6.8 G/DL (5.7-8.2)
== END ==
LOC: M EKG 07:50
PROVIDERS: ATTEND Podiatrist
DX: M20.12 Hallux valgus (acquired), left foot (principal); M20.42 Other hammer toe(s) (acquired), left foot; M79.672 Pain in left foot; I49.8 Other specified cardiac arrhythmias; R94.31 Abnormal electrocardiogram [ECG] [EKG]

== ENCOUNTER → 2024-01-29 | Outpatient (REF) | payer MEDICARE, MEDICAID | LOC: M SFHCPLAZ 12:17 | PROVIDERS: ATTEND Internal Medicine Infectious Disease | DX: J06.9 Acute upper respiratory infection, unspecified (principal) ==

== ENCOUNTER 2024-01-30 11:22 | Day surgery (SDC) | payer MEDICARE, MEDICAID ==
[~2024-01-30] VITALS: Ht 175.3 cm; Wt 76.8 kg
[~2024-01-30 11:22] MED LIST changes: +BACITRACIN OINTMENT 30GM TUBE As Ordered ONE; +LIDOCAINE 2% MDV 20ML VIAL As Ordered ONE; +NEOSPORIN GU IRRIG 20ML VIAL As Ordered ONE; +ROPIvacaine 0.5% 30ML VIAL As Ordered ONE; +ceFAZolin SOD 2 GM in IV 1 EA IV ONE
[2024-01-30] MEDS ORDERED: ONDANSETRON 4MG 2ML VIAL As Ordered ONE (12:48)
[2024-01-30] MEDS ORDERED: LIDOCAINE 2% 100MG/5ML SDV (FOR ANES.) As Ordered ONE (12:48)
[2024-01-30] MEDS ORDERED: ACETAMINOPHEN 1000MG 100ML IV BAG As Ordered ONE (12:48)
[2024-01-30] MEDS ORDERED: KETOROLAC 60MG 2ML VIAL As Ordered ONE (12:48)
[2024-01-30] MEDS ORDERED: propofoL 200 MG/20 ML VIAL As Ordered ONE (12:48)
[2024-01-30] MEDS ORDERED: MIDAZOLAM INJ 2MG/2ML VIAL As Ordered ONE (12:49)
[2024-01-30] MEDS ORDERED: fentaNYL 100 MCG/2 ML INJECTION As Ordered ONE (12:49)
[2024-01-30] MEDS ORDERED: GENTAMICIN SULF 80MG/2ML VIAL As Ordered ONE (13:28)
[2024-01-30 16:15] VITALS: BP 141/80; TEMP 97; O2SAT 96
== END 2024-01-30 16:16 | disposition home or self-care (01) ==
LOC: M SDC 11:22
PROVIDERS: ATTEND Podiatrist
DX: M20.12 Hallux valgus (acquired), left foot (principal); M20.42 Other hammer toe(s) (acquired), left foot; E78.00 Pure hypercholesterolemia, unspecified; Z21 Asymptomatic human immunodeficiency virus [HIV] infection status; Z79.899 Other long term (current) drug therapy; M10.9 Gout, unspecified; Z88.2 Allergy status to sulfonamides; Z88.8 Allergy status to other drugs, medicaments and biological substances
CPT/HCPCS: 28285; 28292; 73630; 76000; 88300; C1713; J0131; J0665; J1100; J1580; J1885; J2250; J2405; J2795; J3010

== ENCOUNTER → 2024-05-03 | Outpatient (CLI) | payer MEDICARE, MEDICAID ==
[~2024-05-03] MED LIST changes: -BACITRACIN OINTMENT 30GM TUBE As Ordered ONE; -LIDOCAINE 2% MDV 20ML VIAL As Ordered ONE; -NEOSPORIN GU IRRIG 20ML VIAL As Ordered ONE; -ROPIvacaine 0.5% 30ML VIAL As Ordered ONE; -ceFAZolin SOD 2 GM in IV 1 EA IV ONE
[2024-05-03 20:43] LABS: URIC ACID 7.1 MG/DL (3.7-9.2)
[2024-05-03 20:46] LABS: ALBUMIN 3.9 G/DL (3.2-5.2); ALKALINE PHOSPHATASE 75 U/L (40-129); ALT/SGPT 33 U/L (7.0-40); AST/SGOT 19 U/L (<34); BILIRUBIN,TOTAL 0.5 MG/DL (0.3-1.2); BLOOD UREA NITROGEN 31 MG/DL (9-23); CALCIUM LEVEL 10.1 MG/DL (8.3-10.6); CARBON DIOXIDE LEVEL 24 MMOL/L (20-31); CHLORIDE LEVEL 107 MMOL/L (98-107); CHOLESTEROL LEVEL 265 MG/DL (<200); CHOLESTEROL RISK RATIO 6.74 (<5); CREATININE FOR GFR 1.52 MG/DL (0.70-1.30); GLOMERULAR FILTRATION RATE 48.8 (>49); GLUCOSE, FASTING 121 MG/DL (74-106); HDL CHOLESTEROL 39.3 MG/DL (>40); NON-HDL-C 225.7 MG/DL; POTASSIUM SERUM 4.3 MMOL/L (3.5-5.1); SODIUM LEVEL 141 MMOL/L (136-145); TOTAL PROTEIN 7.2 G/DL (5.7-8.2); TRIGLYCERIDES LEVEL 496 MG/DL (<150)
[2024-05-05 20:10] LABS: % CD4+ LYMPHS 14.5 % (30.8-58.5); ABSOLUTE CD4 HELPER 334 /uL (359-1519); BASOPHILS 1 % (Not Estab.); BASOPHILS ABSOLUTE 0.1 x10E3/uL (0.0-0.2); EOSINOPHILS 1 % (Not Estab.); EOSINOPHILS ABSOLUTE 0.1 x10E3/uL (0.0-0.4); HCT 48.8 % (37.5-51.0); HGB 16.2 g/dL (13.0-17.7); LYMPHOCYTES 28 % (Not Estab.); LYMPHOCYTES ABSOLUTE 2.3 x10E3/uL (0.7-3.1); MCH 30.1 pg (26.6-33.0); MCHC 33.2 g/dL (31.5-35.7); MCV 91 fL (79-97); MONOCYTES 7 % (Not Estab.); MONOCYTES ABSOLUTE 0.6 x10E3/uL (0.1-0.9); NEUTROPHILS 63 % (Not Estab.); NEUTROPHILS ABSOLUTE 5.2 x10E3/uL (1.4-7.0); PLT 253 x10E3/uL (150-450); RBC 5.39 x10E6/uL (4.14-5.80); RDW 13.5 % (11.6-15.4); WBC 8.2 x10E3/uL (3.4-10.8)
[2024-05-06 19:12] LABS: HIV-1 RNA PCR QUANT 2 <20 DETECTED copies/mL (NOT DETECTED); HIV-1 RNA PCR QUANT 3 <1.30 DETECTED (NOT DETECTED)
== END ==
LOC: M PLALAB 14:34
PROVIDERS: ATTEND Internal Medicine Infectious Disease
DX: B20 Human immunodeficiency virus [HIV] disease (principal); M10.079 Idiopathic gout, unspecified ankle and foot; E78.00 Pure hypercholesterolemia, unspecified

== ENCOUNTER → 2024-07-12 | Outpatient (CLI) | payer MEDICARE, MEDICAID ==
[2024-07-12 12:10] LABS: ALBUMIN 3.9 G/DL (3.2-5.2); BILIRUBIN,TOTAL 0.6 MG/DL (0.3-1.2); CALCIUM LEVEL 9.2 MG/DL (8.3-10.6); CHOLESTEROL RISK RATIO 3.06 (<5); CREATININE FOR GFR 1.3 MG/DL (0.70-1.30); GLOMERULAR FILTRATION RATE 58.4 (>49); LDL CHOLESTEROL 53.4 MG/DL (<100); POTASSIUM SERUM 4.5 MMOL/L (3.5-5.1); TOTAL PROTEIN 7.1 G/DL (5.7-8.2)
[2024-07-13 14:07] LABS: % CD4+ LYMPHS 19.4 % (30.8-58.5); ABSOLUTE CD4 HELPER 194 /uL (359-1519); BASOPHILS 1 % (Not Estab.); EOSINOPHILS 3 % (Not Estab.); EOSINOPHILS ABSOLUTE 0.2 x10E3/uL (0.0-0.4); HCT 49.2 % (37.5-51.0); HGB 16.9 g/dL (13.0-17.7); LYMPHOCYTES 19 % (Not Estab.); MCH 30.6 pg (26.6-33.0); MCHC 34.3 g/dL (31.5-35.7); MCV 89 fL (79-97); MONOCYTES 8 % (Not Estab.); MONOCYTES ABSOLUTE 0.4 x10E3/uL (0.1-0.9); NEUTROPHILS 69 % (Not Estab.); NEUTROPHILS ABSOLUTE 3.7 x10E3/uL (1.4-7.0); PLT 192 x10E3/uL (150-450); RBC 5.52 x10E6/uL (4.14-5.80); RDW 14.7 % (11.6-15.4); WBC 5.3 x10E3/uL (3.4-10.8)
== END ==
LOC: M LAB 09:16
PROVIDERS: ATTEND Internal Medicine Infectious Disease
DX: B20 Human immunodeficiency virus [HIV] disease (principal); E78.00 Pure hypercholesterolemia, unspecified

== ENCOUNTER 2025-01-19 07:29 | Observation (INO) | payer MEDICARE, MEDICAID ==
[~2025-01-19] VITALS: Ht 175.3 cm; Wt 80.4 kg
[~2025-01-19 07:29] MED LIST changes: -PRAV40TA2 PO; +PRAV40TA85 PO
[2025-01-19] MEDS ORDERED: ELIQ2.5T PO (07:45)
[2025-01-19 08:23] LABS: KETONE, URINE AUTO RFX NEGATIVE (NEGATIVE); LEUKOCYTE ESTERASE UR AUTO RFX NEGATIVE (NEGATIVE); MUCUS, URINE RFX SMALL (NEGATIVE); NITRITE, URINE AUTO RFX NEGATIVE (NEGATIVE); RBC, URINE AUTO RFX 4 /HPF (0-3); SQUAM EPITHELIAL CELL UR AURFX 0 /HPF (0-6); WBC, URINE AUTO RFX 1 /HPF (0-3)
[2025-01-19 08:24] LABS: BASO # 0.0 10^3/uL (0.0-0.2); BASO % 0.3 % (0.0-1.0); EOS # 0.1 10^3/uL (0.0-0.5); EOS % 0.5 % (0.0-3.0); LYMPH # 1.1 10^3/uL (1.5-5.0); LYMPH % 9.6 % (24.0-44.0); MONO # 1.1 10^3/uL (0.0-0.8); MONO % 9.7 % (2.0-8.0); NEUTROPHILS # 8.7 10^3/uL (1.5-8.5); NEUTROPHILS % 79.4 % (36.0-66.0); PLATELET COUNT, AUTOMATED 165 10^3/uL (150-450)
[2025-01-19] MEDS: MORPHINE 4 MG/ML 1 ML VIAL IV ONE (08:40)
[2025-01-19] MEDS: ONDANSETRON 4MG 2ML VIAL IV ONE (08:40)
[2025-01-19 08:54] LABS: CALCIUM LEVEL 9.3 MG/DL (8.3-10.6); CARBON DIOXIDE LEVEL 30.0 MMOL/L (20-31); CHLORIDE LEVEL 102.0 MMOL/L (98-107); CREATININE FOR GFR 1.36 MG/DL (0.70-1.30); GLOMERULAR FILTRATION RATE 56.3 (>49); POTASSIUM SERUM 3.8 MMOL/L (3.5-5.1); SODIUM LEVEL 142.0 MMOL/L (136-145)
[2025-01-19 09:23] LABS: INR 1.52
[2025-01-19] MEDS ORDERED: ISOVUE-370 76% 100 ML VIAL As Ordered ONE (10:24)
[2025-01-19] MEDS ORDERED: VALA500T5 PO (12:12)
[2025-01-19] MEDS ORDERED: MULTTAB61 PO (12:12)
[2025-01-19] MEDS ORDERED: METO1TAB32 PO (12:12)
[2025-01-19] MEDS ORDERED: ROSU20TA86 PO (12:12)
[2025-01-19] MEDS ORDERED: MAGN100T PO (12:12)
[2025-01-19] MEDS ORDERED: ELIQ5TAB PO (12:12)
[2025-01-19] MEDS ORDERED: VITA100T59 PO (12:12)
[2025-01-19] MEDS ORDERED: TAMS-18 PO (12:12)
[2025-01-19] MEDS ORDERED: ALLO300T2 PO (12:12)
[2025-01-19] MEDS ORDERED: HOME MED LIST COMPLETE! XX SCH (12:15)
[2025-01-19] MEDS: ACETAMINOPHEN *IV* 1,000 MG in IV 1 EA IV ONE (15:11)
[2025-01-19] MEDS ORDERED: **NOTE PATIENT COMMENT** MISC XX SCH (17:35)
[2025-01-20] MEDS: ONDANSETRON 4MG 2ML VIAL IV PRN (04:55)
[2025-01-20] MEDS: MORPHINE 4 MG/ML 1 ML VIAL IV PRN (04:57)
[2025-01-20 06:37] LABS: PLATELET COUNT, AUTOMATED 151 10^3/uL (150-450)
[2025-01-20 06:54] LABS: CALCIUM LEVEL 8.9 MG/DL (8.3-10.6); CARBON DIOXIDE LEVEL 29.0 MMOL/L (20-31); CHLORIDE LEVEL 103.0 MMOL/L (98-107); CREATININE FOR GFR 1.37 MG/DL (0.70-1.30); GLOMERULAR FILTRATION RATE 55.8 (>49); POTASSIUM SERUM 4.3 MMOL/L (3.5-5.1); SODIUM LEVEL 142.0 MMOL/L (136-145)
[2025-01-20] MEDS: FEBUXOSTAT 40 MG TABLET PO SCH (06:59)
[2025-01-20] MEDS: METOPROLOL SUCC. 25 MG *XL* TAB PO SCH (06:59)
[2025-01-20] MEDS: TAMSULOSIN 0.4 MG CAP PO SCH (07:00)
[2025-01-20] MEDS: ROSUVASTATIN 10 MG TAB PO SCH (07:00)
[2025-01-20] MEDS: UNRESOLVED PATIENT OWN MED ORDER XX SCH (09:00)
[2025-01-20 13:29] VITALS: BP 120/80; TEMP 99; O2SAT 93
[2025-01-20] MEDS: MORPHINE 2 MG/ML 1 ML VIAL IV PRN (16:10)
[2025-01-20 20:09] VITALS: BP 105/52; TEMP 99.3; O2SAT 99
[2025-01-21] VITALS (14 sets, daily range): BP systolic 105–148; BP diastolic 60–86; TEMP 97.6–102; O2SAT 92–98
[2025-01-21 07:00] LABS: PLATELET COUNT, AUTOMATED 168 10^3/uL (150-450)
[2025-01-21 07:31] LABS: CALCIUM LEVEL 8.8 MG/DL (8.3-10.6); CARBON DIOXIDE LEVEL 27.0 MMOL/L (20-31); CHLORIDE LEVEL 102.0 MMOL/L (98-107); CREATININE FOR GFR 1.61 MG/DL (0.70-1.30); GLOMERULAR FILTRATION RATE 46.0 (>49); POTASSIUM SERUM 4.1 MMOL/L (3.5-5.1); SODIUM LEVEL 141.0 MMOL/L (136-145)
[2025-01-21] MEDS: ceFAZolin SODIUM 2 GM in DEXTROSE 5% (D5W) ADV/MINI-BAG 50 ML IV ONE (07:42)
[2025-01-21] MEDS: NS (Normal Saline) 0.9% 1,000 ML IV SCH ×2 (07:42→09:10)
[2025-01-21 07:54] LABS: INR 1.1
[2025-01-21] MEDS: MIDAZOLAM INJ 2 MG/2 ML VIAL IV PRN (08:36)
[2025-01-21] MEDS: HEPARIN 1,000 UNITS/ML 10 ML VIAL (FOR RADIOLOGY & DIALYSIS ONLY) IV PRN (08:49)
[2025-01-21] MEDS ORDERED: BIKTARVY (PATIENT'S OWN MED) PO SCH (09:00)
[2025-01-21] MEDS: LIDOCAINE 1% MDV 20 ML VIAL SC SCH (09:05)
[2025-01-21] MEDS: ISOVUE-300 61% 100 ML VIAL IV SCH (09:08)
[2025-01-21] MEDS: NS 0.45% 1,000 ML IV SCH (12:17)
[2025-01-21] MEDS: CLOPIDOGREL 300 MG TAB PO ONE (12:17)
[2025-01-21] MEDS: ASPIRIN 81 MG ENTERIC TABLET PO SCH (12:17)
[2025-01-21] MEDS: ACETAMINOPHEN 325 MG TAB PO PRN (15:15)
[2025-01-21 16:03] LABS: APPEARANCE, URINE CLEAR (CLEAR); BACTERIA, URINE AUTO NEGATIVE (NEGATIVE); BILIRUBIN, URINE AUTO NEGATIVE (NEGATIVE); BLOOD, URINE BLOOD NEGATIVE (NEGATIVE); GLUCOSE, URINE (UA) AUTO NEGATIVE (NEGATIVE); KETONE, URINE AUTO NEGATIVE (NEGATIVE); LEUKOCYTE ESTERASE, URINE AUTO NEGATIVE (NEGATIVE); MUCUS, URINE SMALL (NEGATIVE); NITRITE, URINE AUTO NEGATIVE (NEGATIVE); PROTEIN, URINE AUTO 1+ mg/dL (NEGATIVE); RBC, URINE AUTO 0 /HPF (0-3); SPECIFIC GRAVITY URINE AUTO 1.032 (1.002-1.035); SQUAMOUS EPITHELIAL CELL UR AU 0 /HPF (0-6); UROBILINOGEN, URINE AUTO 2.0 mg/dL (0.0-2.0); WBC, URINE AUTO 1 /HPF (0-3)
[2025-01-22 01:30] VITALS: TEMP 98.8
[2025-01-22 04:16] VITALS: BP 144/78; TEMP 98.3; O2SAT 98
[2025-01-22 08:07] LABS: PLATELET COUNT, AUTOMATED 154 10^3/uL (150-450)
[2025-01-22 08:19] VITALS: BP 137/67; TEMP 99.7
[2025-01-22 08:33] LABS: CALCIUM LEVEL 8.8 MG/DL (8.3-10.6); CARBON DIOXIDE LEVEL 27.0 MMOL/L (20-31); CHLORIDE LEVEL 103.0 MMOL/L (98-107); CREATININE FOR GFR 1.28 MG/DL (0.70-1.30); GLOMERULAR FILTRATION RATE 60.6 (>49); POTASSIUM SERUM 4.7 MMOL/L (3.5-5.1); SODIUM LEVEL 141.0 MMOL/L (136-145)
[2025-01-22] MEDS: CLOPIDOGREL 75 MG TAB PO SCH (09:29)
[2025-01-22] MEDS ORDERED: ASPI81TAEC PO (11:45)
[2025-01-22] MEDS ORDERED: CLOP75TA2 PO (11:45)
== END 2025-01-22 12:30 | disposition home or self-care (01) ==
LOC: M ED 07:29 → M ED INP 17:34 → M MS4PR 01-20 13:15
PROVIDERS: ADMIT Family Medicine; ATTEND Family Medicine
DX: I77.73 Dissection of renal artery (principal); I10 Essential (primary) hypertension; E78.5 Hyperlipidemia, unspecified; C61 Malignant neoplasm of prostate; K76.0 Fatty (change of) liver, not elsewhere classified; M10.9 Gout, unspecified; F41.9 Anxiety disorder, unspecified; F32.A Depression, unspecified; G47.00 Insomnia, unspecified; B20 Human immunodeficiency virus [HIV] disease; Z88.2 Allergy status to sulfonamides; Z88.8 Allergy status to other drugs, medicaments and biological substances; Z79.01 Long term (current) use of anticoagulants; Z79.82 Long term (current) use of aspirin; Z79.899 Other long term (current) drug therapy
CPT/HCPCS: 36415; 37236; 74174; 80048; 81001; 85025; 85027; 85610; 85730; 96361; 96374; 96375; 96376; 99152; 99153; 99285; C1760; C1769; C1874; C1887; G0378; J0131; J0690; J2250; J2405; J2765; J3010; Q9967

== ENCOUNTER → 2025-02-07 | Outpatient (CLI) | payer MEDICARE, MEDICAID ==
[~2025-02-07] MED LIST changes: +ALLO300T2 PO; +ASPI81TAEC PO; +CLOP75TA2 PO; +ELIQ2.5T PO; +ELIQ5TAB PO; +MAGN100T PO; +METO1TAB32 PO; +MULTTAB61 PO; +ROSU20TA86 PO; +TAMS-18 PO; +VALA500T5 PO; +VITA100T59 PO
[2025-02-07 11:23] LABS: ALT/SGPT 36.0 U/L (7.0-40); AST/SGOT 27.0 U/L (<34); CALCIUM LEVEL 9.9 MG/DL (8.3-10.6); CARBON DIOXIDE LEVEL 30.0 MMOL/L (20-31); CHLORIDE LEVEL 107.0 MMOL/L (98-107); CREATININE FOR GFR 1.44 MG/DL (0.70-1.30); GLOMERULAR FILTRATION RATE 52.6 (>49); POTASSIUM SERUM 4.4 MMOL/L (3.5-5.1); SODIUM LEVEL 145.0 MMOL/L (136-145)
[2025-02-09 12:07] LABS: HIV-1 RNA PCR QUANT 2 <20 DETECTED copies/mL (NOT DETECTED); HIV-1 RNA PCR QUANT 3 <1.30 DETECTED (NOT DETECTED)
[2025-02-09 16:07] LABS: % CD4 20 % (30-61); %CD8 63 % (12-42); ABSOLUTE CD4 CELLS 238 cells/uL (490-1740); ABSOLUTE CD8 CELLS 738 cells/uL (180-1170); ABSOLUTE LYMPHOCYTES 1176 cells/uL (850-3900); CD4 CD8 RATIO 0.32 (0.86-5.00)
== END ==
LOC: M LAB 09:12
PROVIDERS: ATTEND Internal Medicine Infectious Disease
DX: B20 Human immunodeficiency virus [HIV] disease (principal)

== ENCOUNTER → 2025-02-07 | Outpatient (POV) | payer MEDICARE, MEDICAID ==
[~2025-02-07] VITALS: Ht 170.2 cm; Wt 80.4 kg
[2025-02-07 09:25] VITALS: BP 130/82; O2SAT 99
== END ==
LOC: M IRPOV 09:07
PROVIDERS: ATTEND Registered Nurse School
DX: Z48.812 Encounter for surgical aftercare following surgery on the circulatory system (principal); I77.73 Dissection of renal artery; M54.9 Dorsalgia, unspecified; Z88.1 Allergy status to other antibiotic agents; Z88.2 Allergy status to sulfonamides; Z95.828 Presence of other vascular implants and grafts

== ENCOUNTER → 2025-02-24 | Outpatient (CLI) | payer MEDICARE, MEDICAID | LOC: M RAD 07:57 | PROVIDERS: ATTEND Radiology Diagnostic Radiology | DX: I77.73 Dissection of renal artery (principal) ==

== ENCOUNTER → 2025-03-16 | Outpatient (POV) | payer MEDICARE, MEDICAID ==
[~2025-03-16] MED LIST changes: -ROSU10TA61 PO; +ROSU10TA90 PO
== END ==
LOC: M IRPOV 11:12
PROVIDERS: ATTEND Registered Nurse School
DX: Z48.812 Encounter for surgical aftercare following surgery on the circulatory system (principal); M54.50 Low back pain, unspecified; Z79.82 Long term (current) use of aspirin; Z88.2 Allergy status to sulfonamides; Z88.8 Allergy status to other drugs, medicaments and biological substances